=== PATIENT | female | born 1975 | race Caucasian/White ===

== ENCOUNTER 2021-12-28 21:06 | Inpatient (IN) ==
[2021-12-28 21:45] LABS: Basophils # (auto) 0.04 K/uL (0-0.2); Basophils % (auto) 0.5 %; Eosinophils % (auto) 2.6 %; Hematocrit (blood only) 41.2 % (37-47); Hemoglobin 13.9 g/dL (12.0-16.0); Immature Granulocytes # (auto) 0.01 K/uL (0.00-0.02); Immature Granulocytes % (auto) 0.1 %; Lymphocytes # (auto) 2.57 K/uL (1.2-3.4); Lymphocytes % (auto) 33.1 %; Mean Corpuscular Hemoglobin 30.3 pg (25-34); Mean Corpuscular Hgb Conc 33.7 g/dL (32-36); Mean Platelet Volume 9.8 fL (7.4-10.4); Monocytes # (auto) 0.56 K/uL (0.11-0.59); Monocytes % (auto) 7.2 %; Neutrophils # (auto) 4.38 K/uL (1.4-6.5); Neutrophils % (auto) 56.5 %; Platelet Count 264 K/uL (130-400); RDW Coefficient of Variation 12.7 % (11.5-14.5); RDW Standard Deviation 41.6 fL (36.4-46.3); Red Blood Count 4.58 M/uL (4.2-5.4); White Blood Count 7.76 K/uL (4.8-10.8)
--- NOTE | 2021-12-28 21:48 | Emergency Department Note ---
History of Present Illness General Chief complaint: Mental Health Evaluation Stated complaint: MENTAL HEALTH Time Seen by Provider: 12/28/21 21:33 History of Present Illness Maximum Pain Intensity: 0 46-year-old female presents to the ED with a chief complaint of suicidal ideation. The patient states that she has had some recent traumas in her life. She states that her dad suddenly and unexpectedly in the recent past. She also states that her girlfriend has broken up with her. She states that she is currently in a basement apartment and does not want to be there. She has not done anything to hurt or harm herself as of yet. She sent some text messages to a friend who subsequently suggested she come in for evaluation. The patient is voluntary. She has been admitted to a mental health facility in the past. Home Medications Medication Instructions Recorded Confirmed Type Aygestin 5 mg PO DAILY 12/28/21 12/28/21 History Concerta 18 mg PO DAILY 12/28/21 12/28/21 History bupropion HCl 300 mg PO 12/28/21 History clonazepam 1.5 mg PO DAILY 12/28/21 12/28/21 History clonazepam 2 mg PO DAILY 12/28/21 12/28/21 History mirtazapine 15 mg PO DAILY 12/28/21 12/28/21 History pantoprazole 40 mg PO DAILY 12/28/21 12/28/21 History prazosin 2 mg PO DAILY 12/28/21 12/28/21 History sertraline 200 mg PO DAILY 12/28/21 12/28/21 History Past Med/Surg History Social History Smoking Status: Never smoker Review of Systems A total of 10 systems reviewed and were otherwise negative Physical Exam Vital Signs Vital Signs - 24 hr 12/28/21 21:06 12/28/21 22:13 Temperature 37.2 C 36.7 C Temperature Source Temporal Artery Scan Oral Pulse Rate 102 H Pulse Rate [Finger] 106 H Respiratory Rate 16 18 Blood Pressure 118/84 Blood Pressure [Left Arm] 147/86 H Blood Pressure Mean 95 Blood Pressure Mean [Left Arm] 106 Blood Pressure Position Sitting Pulse Oximetry 96 100 Oxygen Delivery Method Room Air Room Air Sepsis Recent Fever Within 48 Hours No Sepsis New/Unexplained Change in Mental Status No Sepsis Action Taken by Nursing No Action Required CONSTITUTIONAL/VITAL SIGNS: Reviewed / noted above. GENERAL: Non-toxic in appearance. INTEGUMENTARY: Warm, dry, and Petal. HEAD: Normocephalic. EYES: without scleral icterus or trauma. ENT/OROPHARYNX: clear and moist. LYMPHADENOPATHY/NECK: Is supple without lymphadenopathy or meningismus. RESPIRATORY: Clear to auscultation bilaterally. No increased work of breathing. CARDIOVASCULAR: Regular rate and rhythm. GI/ABDOMEN: Soft and nontender. No organomegaly or pulsatile mass. EXTREMITIES: Warm and well perfused. BACK: No CVA tenderness. NEUROLOGICAL: Intact without focal deficits. PSYCHIATRIC: Depressed affect. MUSCULOSKELETAL: Normally developed with good muscle tone. TRIAGE NURSING DOCUMENTATION REVIEWED. Course Administered Medications Discontinued Medications Hydroxyzine HCl (Hydroxyzine Hcl 25 Mg Tab) 25 mg PO NOW STA Stop: 12/28/21 23:06 Last Admin: 12/28/21 23:18 Dose: 25 mg Documented by: [id number] Medical Decision Making Differential Diagnosis Differential includes toxic ingestions, self-mutilation, suicidal ideation, suicide attempt, depression. Medical Records Attestation: I reviewed the patient's medical records. Home Medications Current Medication List: was personally reviewed by me Laboratory Data Attestation: I reviewed the patient's lab results. Result diagrams: 12/28/21 21:29 12/28/21 21:29 Lab Results 12/28/21 12/28/21 12/28/21 Range/Units 21:23 21:23 21:23 WBC (4.8-10.8) K/uL RBC (4.2-5.4) M/uL Hgb (12.0-16.0) g/dL Hct (37-47) % MCV (80-100) fL MCH (25-34) pg MCHC (32-36) g/dL RDW Std Deviation (36.4-46.3) fL RDW Coeff of Tejinder (11.5-14.5) % Plt Count (130-400) K/uL MPV (7.4-10.4) fL Immature Gran % (Auto) % Neut % (Auto) % Lymph % (Auto) % [place] % (Auto) % Eos % (Auto) % Baso % (Auto) % Neut # (Auto) (1.4-6.5) K/uL Lymph # (Auto) (1.2-3.4) K/uL [place] # (Auto) (0.11-0.59) K/uL Eos # (Auto) (0-0.5) K/uL Baso # (Auto) (0-0.2) K/uL Immature Gran # (Auto) (0.00-0.02) K/uL Sodium (136-145) mmol/L Potassium (3.5-5.1) mmol/L Chloride (98-107) mmol/L Carbon Dioxide (21-32) mmol/L Anion Gap (3-11) BUN (6-23) mg/dl Creatinine (0.6-1.2) mg/dl Est Cr Clr Drug Dosing ml/min Est GFR ( Amer) ml/min Est GFR (Non-Af Amer) ml/min BUN/Creatinine Ratio (10-20) Glucose (70-99(Fasting)) mg/dl Calcium (8.5-10.1) mg/dl Total Bilirubin (0.2-1.0) mg/dl AST (13-39) U/L ALT (7-52) U/L Alkaline Phosphatase (34-104) U/L Total Protein (6.0-8.3) gm/dl Albumin (3.4-5.0) gm/dl Globulin (2.5-4.0) gm/dl Albumin/Globulin Ratio (0.9-2) TSH (0.300-4.500) uIu/ml Urine Color Yellow Urine Appearance Clear (Clear) Urine pH 6.0 (4.5-7.5) Ur Specific Halfway 1.022 (1.000-1.030) Urine Protein Negative (Negative) Urine Glucose (UA) Negative (Negative) Urine Ketones Negative (Negative) Urine Blood Negative (Negative) Urine Nitrite Negative (Negative) Urine Bilirubin Negative (Negative) Urine Urobilinogen Negative (Negative) Ur Leukocyte Esterase Negative (Negative) Urine Test Negative (Negative) Salicylates (3.0-30) mg/dl Urine Opiates Screen Neg (Neg) Ur Methadone, Qual Neg (Neg) Acetaminophen (10-30) ug/ml Urine Barbiturates Neg (Neg) Ur Phencyclidine (PCP) Neg (Neg) U Amphetamin/Meth Scrn Neg (Neg) MDMA (Ecstasy) Screen Pos H (Neg) U Benzodiazepines Scrn Pos H (Neg) Ur Cocaine Metabolite Neg (Neg) U Marijuana (THC) Screen Pos H (Neg) Ethyl Alcohol mg/dL (<10.0) mg/dl SARS-CoV-2, RNA, NAAT (NEGATIVE) 12/28/21 12/28/21 12/28/21 Range/Units 21:29 21:29 21:29 WBC 7.76 (4.8-10.8) K/uL RBC 4.58 (4.2-5.4) M/uL Hgb 13.9 (12.0-16.0) g/dL Hct 41.2 (37-47) % MCV 90.0 (80-100) fL MCH 30.3 (25-34) pg MCHC 33.7 (32-36) g/dL RDW Std Deviation 41.6 (36.4-46.3) fL RDW Coeff of Tejinder 12.7 (11.5-14.5) % Plt Count 264 (130-400) K/uL MPV 9.8 (7.4-10.4) fL Immature Gran % (Auto) 0.1 % Neut % (Auto) 56.5 % Lymph % (Auto) 33.1 % [place] % (Auto) 7.2 % Eos % (Auto) 2.6 % Baso % (Auto) 0.5 % Neut # (Auto) 4.38 (1.4-6.5) K/uL Lymph # (Auto) 2.57 (1.2-3.4) K/uL [place] # (Auto) 0.56 (0.11-0.59) K/uL Eos # (Auto) 0.20 (0-0.5) K/uL Baso # (Auto) 0.04 (0-0.2) K/uL Immature Gran # (Auto) 0.01 (0.00-0.02) K/uL Sodium 136 (136-145) mmol/L Potassium 3.3 L (3.5-5.1) mmol/L Chloride 104 (98-107) mmol/L Carbon Dioxide 26 (21-32) mmol/L Anion Gap 6 (3-11) BUN 15 (6-23) mg/dl Creatinine 1.02 (0.6-1.2) mg/dl Est Cr Clr Drug Dosing 55.7 ml/min Est GFR ( Amer) 77.5 ml/min Est GFR (Non-Af Amer) 66.8 ml/min BUN/Creatinine Ratio 14.7 (10-20) Glucose 107 H (70-99(Fasting)) mg/dl Calcium 8.8 (8.5-10.1) mg/dl Total Bilirubin 0.3 (0.2-1.0) mg/dl AST 11 L (13-39) U/L ALT 8 (7-52) U/L Alkaline Phosphatase 39 (34-104) U/L Total Protein 6.5 (6.0-8.3) gm/dl Albumin 4.1 (3.4-5.0) gm/dl Globulin 2.4 L (2.5-4.0) gm/dl Albumin/Globulin Ratio 1.7 (0.9-2) TSH 2.710 (0.300-4.500) uIu/ml Urine Color Urine Appearance (Clear) Urine pH (4.5-7.5) Ur Specific Halfway (1.000-1.030) Urine Protein (Negative) Urine Glucose (UA) (Negative) Urine Ketones (Negative) Urine Blood (Negative) Urine Nitrite (Negative) Urine Bilirubin (Negative) Urine Urobilinogen (Negative) Ur Leukocyte Esterase (Negative) Urine Test (Negative) Salicylates (3.0-30) mg/dl Urine Opiates Screen (Neg) Ur Methadone, Qual (Neg) Acetaminophen (10-30) ug/ml Urine Barbiturates (Neg) Ur Phencyclidine (PCP) (Neg) U Amphetamin/Meth Scrn (Neg) MDMA (Ecstasy) Screen (Neg) U Benzodiazepines Scrn (Neg) Ur Cocaine Metabolite (Neg) U Marijuana (THC) Screen (Neg) Ethyl Alcohol mg/dL (<10.0) mg/dl SARS-CoV-2, RNA, NAAT (NEGATIVE) 12/28/21 12/28/21 12/28/21 Range/Units 21:29 21:29 22:08 WBC (4.8-10.8) K/uL RBC (4.2-5.4) M/uL Hgb (12.0-16.0) g/dL Hct (37-47) % MCV (80-100) fL MCH (25-34) pg MCHC (32-36) g/dL RDW Std Deviation (36.4-46.3) fL RDW Coeff of Tejinder (11.5-14.5) % Plt Count (130-400) K/uL MPV (7.4-10.4) fL Immature Gran % (Auto) % Neut % (Auto) % Lymph % (Auto) % [place] % (Auto) % Eos % (Auto) % Baso % (Auto) % Neut # (Auto) (1.4-6.5) K/uL Lymph # (Auto) (1.2-3.4) K/uL [place] # (Auto) (0.11-0.59) K/uL Eos # (Auto) (0-0.5) K/uL Baso # (Auto) (0-0.2) K/uL Immature Gran # (Auto) (0.00-0.02) K/uL Sodium (136-145) mmol/L Potassium (3.5-5.1) mmol/L Chloride (98-107) mmol/L Carbon Dioxide (21-32) mmol/L Anion Gap (3-11) BUN (6-23) mg/dl Creatinine (0.6-1.2) mg/dl Est Cr Clr Drug Dosing ml/min Est GFR ( Amer) ml/min Est GFR (Non-Af Amer) ml/min BUN/Creatinine Ratio (10-20) Glucose (70-99(Fasting)) mg/dl Calcium (8.5-10.1) mg/dl Total Bilirubin (0.2-1.0) mg/dl AST (13-39) U/L ALT (7-52) U/L Alkaline Phosphatase (34-104) U/L Total Protein (6.0-8.3) gm/dl Albumin (3.4-5.0) gm/dl Globulin (2.5-4.0) gm/dl Albumin/Globulin Ratio (0.9-2) TSH (0.300-4.500) uIu/ml Urine Color Urine Appearance (Clear) Urine pH (4.5-7.5) Ur Specific Halfway (1.000-1.030) Urine Protein (Negative) Urine Glucose (UA) (Negative) Urine Ketones (Negative) Urine Blood (Negative) Urine Nitrite (Negative) Urine Bilirubin (Negative) Urine Urobilinogen (Negative) Ur Leukocyte Esterase (Negative) Urine Test (Negative) Salicylates < 3.0 L (3.0-30) mg/dl Urine Opiates Screen (Neg) Ur Methadone, Qual (Neg) Acetaminophen < 3 L (10-30) ug/ml Urine Barbiturates (Neg) Ur Phencyclidine (PCP) (Neg) U Amphetamin/Meth Scrn (Neg) MDMA (Ecstasy) Screen (Neg) U Benzodiazepines Scrn (Neg) Ur Cocaine Metabolite (Neg) U Marijuana (THC) Screen (Neg) Ethyl Alcohol mg/dL < 10.0 (<10.0) mg/dl SARS-CoV-2, RNA, NAAT NEGATIVE (NEGATIVE) MDM Narrative Patient presents to the ED with a chief complaint of depression and suicidal ideation as detailed above. Vital signs are stable. The patient's blood work was unremarkable. Covid test is negative. Tox screen was positive for MDMA, benzos and marijuana. Aspirin and Tylenol negative. Alcohol is negative. The patient is a voluntary admission at this time. She was given some hydroxyzine for anxiety. The patient was accepted at [facility] Impression & Plan Depression with suicidal ideation Discharge Plan Visit Data Chief Complaint: Mental Health Evaluation Stated Complaint: MENTAL HEALTH ED Provider: Jayro Hawkins Discharge Problem: Depression with suicidal ideation Patient Disposition: Transfer Behavioral Health Fac Forms Stand Alone Forms: [facility], Suicide Prevention Resources, Virtual Emergency Department, Important Visit Information Prescriptions Prescriptions: No Action Concerta 18 mg tablet 18 mg PO DAILY RF: 0 bupropion HCl 300 mg 300 mg PO RF: 0 clonazepam 2 mg tablet 2 mg PO DAILY RF: 0 clonazepam 1.5 mg 1.5 mg PO DAILY RF: 0 mirtazapine 15 mg tablet 15 mg PO DAILY RF: 0 pantoprazole 40 mg tablet 40 mg PO DAILY RF: 0 prazosin 2 mg tablet 2 mg PO DAILY RF: 0 sertraline 100 mg tablet 200 mg PO DAILY RF: 0 Aygestin 5 mg tablet 5 mg PO DAILY RF: 0 Referrals Referrals: PCP,NO [Primary Care Provider] -
[2021-12-28 22:02] LABS: Albumin Globulin Ratio 1.7 (0.9-2); Albumin Level 4.1 gm/dl (3.4-5.0); Bilirubin,Total 0.3 mg/dl (0.2-1.0); Calcium 8.8 mg/dl (8.5-10.1); Creatinine Clr Calc Pharmacy 55.7 ml/min; Est GFR (African American) 77.5 ml/min; Est GFR (Non-African American) 66.8 ml/min; Globulin 2.4 gm/dl (2.5-4.0); Potassium 3.3 mmol/L (3.5-5.1); Total Protein 6.5 gm/dl (6.0-8.3)
[2021-12-28 22:12] LABS: Acetaminophen < 3 ug/ml (10-30); Salicylate < 3.0 mg/dl (3.0-30)
[2021-12-28 22:13] LABS: Appearance Urine Clear (Clear); Bilirubin Urine Negative (Negative); Blood Urine Negative (Negative); Color Urine Yellow; Glucose Urine UA Negative (Negative); Ketones Urine Negative (Negative); Leukocyte Esterase Urine Negative (Negative); Nitrite Urine Negative (Negative); Protein Urine Negative (Negative); Specific Gravity Urine 1.022 (1.000-1.030); Urobilinogen Urine Negative (Negative)
[2021-12-28 22:14] VITALS: O2SAT 100
[2021-12-28 22:31] LABS: BUN Creatinine Ratio 14.7 (10-20)
[2021-12-28 22:46] LABS: Amphetamines+Metham, Urine Neg (Neg); Barbiturates, Urine Neg (Neg); Benzodiazepine, Urine Pos (Neg); Cocaine, Urine Neg (Neg); MDMA (Ecstacy), Urine Pos (Neg); Methadone, Urine Neg (Neg); Opiate, Urine Neg (Neg); Phencyclidine, Urine Neg (Neg)
[2021-12-28] MEDS ORDERED: hydrOXYzine HCl 25 MG TAB PO STA (23:05)
[2021-12-28 23:50] LABS: Pregnancy Test, Urine Negative (Negative)
[2021-12-29] MEDS ORDERED: MAGNESIUM HYDROXIDE SUSP 30 ML UDC PO PRN (00:50)
[2021-12-29] MEDS ORDERED: SODIUM CHLORIDE 0.65% NA SOLN 45 ML (OCEAN) PRN (00:50)
[2021-12-29] MEDS ORDERED: BISMUTH SUBSALICYLATE LIQD 236 ML PO PRN (00:50)
[2021-12-29] MEDS ORDERED: hydrOXYzine HCl 25 MG TAB PO PRN ×2 (00:50)
[2021-12-29] MEDS ORDERED: ACETAMINOPHEN 325 MG TAB PO PRN (00:50)
[2021-12-29] MEDS ORDERED: ALUMINUM/MAGNESIUM SUSP 30 ML UDC PO PRN (00:50)
[2021-12-29] MEDS: clonazePAM 1 MG TAB PO SCH (10:38)
[2021-12-29] MEDS ORDERED: chlorproMAZINE HCL 25 MG TAB PO PRN (11:38)
[2021-12-29] MEDS ORDERED: LORazepam 2 MG/ML VIAL (IM USE) IM STA (11:50)
[2021-12-29] MEDS ORDERED: BENZTROPINE MESYLATE 1 MG/ML 2 ML AMP IM STA (11:50)
[2021-12-29] MEDS ORDERED: HALOPERIDOL LACTATE 5 MG/ML 1 ML VIAL IM STA (11:50)
[2021-12-29] MEDS ORDERED: HALOPERIDOL LACTATE 5 MG/ML 1 ML VIAL ONE (11:53)
[2021-12-29] MEDS ORDERED: LORazepam 2 MG/ML VIAL (IM USE) ONE (11:54)
[2021-12-29] MEDS ORDERED: BENZTROPINE MESYLATE 1 MG/ML 2 ML AMP ONE (11:55)
[2021-12-29] MEDS: SERTRALINE HCL 100 MG TABLET PO SCH (12:23)
[2021-12-29] MEDS: NORETHINDRONE 5 MG TAB PO SCH (12:23)
[2021-12-29] MEDS ORDERED: METHYLPHENIDATE HCL 10 MG TABLET PO ONE (12:30)
[2021-12-29] MEDS: buPROPion XL 300 MG TABCR PO SCH (12:35)
--- NOTE | 2021-12-29 12:44 | History & Physical ---
Date of Service December 29, 2021 Impression / Recommendations Impression 46 yo female with threats to harm self following a break up with her girlfriend and multiple losses (father in August, a friend's brother's suicide, etc). She is adamant that her medications are fine and that therapies will not deter her from following through. Her dramatic statements in the context of perceived rejection are suggestive of borderline personality disorder but she also has a reported history of complex trauma which we aren't able to delineate during this period of acute agitation. (1) Depression with suicidal ideation: (2) Post traumatic stress disorder (PTSD): The patient was admitted to the [facility] ([facility] unit) on q15 min checks (behavioral with suicide precautions) for safety. The patient will participate in group, recreational, and milieu therapies and will be offered additional individual and family sessions as clinically appropriate. Reviewed behavioral expectations on unit with patient and she voiced desire to remain a voluntary patient. Reviewed indication for conversion to 302 commitment if she remains resistant to treatment and this disruptive to unit milieu and/or threatening toward staff. Home medications are confirmed and ordered though Concerta not available to converted to 5 mg methylphenidate TID. She is requesting prn other than vistaril, reviewed VS and offer low dose Thorazine. I do not want to give additional Ativan on a regular basis on top of her 3 mg of Klonopin a day so if needs additional IM would consider Haldol alone. Currently after several hours of staff interventions and multiple interactions with me she is resting calmly. Inventory Assets Strengths: established providers, therapy minded Needs: coping skills, exploration of housing options Risk Factors Assessment Male: No : Yes Do You Have Access To A Gun?: No Mental Health Diagnoses: Yes Substance Use Disorders: No Previous Attempt: Yes Previous Psychiatric Hospitalization: Yes Protective Factors Assessment : No Responsible for Young Children: No Employed: No Stable Relationships: No Psychiatric History Identifying Data RAAD VOGEL is a 46-year-old F who was residing in the [facility] and is currently staying with a friend's relative in [place], has a history of P TSD, and was admitted on 12/29/21 00:50 on a 201 voluntary commitment for suicidal statements. Chief Complaint "I am going to kill myself and that's just a fact no matter how long I'm here". History of Present Illness The patient has been very uncooperative this am. Was sleeping and am meds were being held until seen by MD to confirm given rx of benzo, 3 antidepressants, etc. She states this triggered a panic attack but voiced other significant complaints, mainly that "the one person who was supposed to love me didn't". She is referring to her ex-girlfriend who is currently "on vacation in [place]" following their abrupt break up. The patient states that things "haven't been great but we were going to counseling". For example, reports girlfriend yelled at her at the same time her father unexpectedly in August. The patient notes other losses in the past 10 weeks and reports "I've decided I'm just done" (referring to life in general). She is angry that her only provides $500 spousal support and she has a limited relationship with her children who continue to reside with him in [place]. She was loud, restless, tearful, and accusatory throughout the interview and demanded that her ex-girlfriend be called by staff and confronted about "creating this", referring to her current psychiatric state. The patient continued to escalate despite verbal de- escalation and receiving am meds. She spent significant time in/out of her room yelling and wanting to be "put out", referring to chemical restraint. Reviewed that not a goal of treatment and possibility of switching to an involuntary commitment at which time she became even more angry. Prn Thorazine was ordered but before it could be administered patient continued to escalate and was voluntarily accepted Haldol 10 mg, Ativan 2 mg, and Cogentin 1 mg and expressed thanks to staff. Past Psychiatric History Previous Psych History: PTSD, ADHD, recently restarting Concerta. No rx was in PDMP so I contacted [facility] in [place] ([facility]) and confirmed dose/order. It had not been picked up as they did not have adequate supply to dispense. Current Psychiatric Diagnosis: MDD Outpatient Services: Dr. Chavez in [place], [place]. Patient has continued with him while living in [place] via telehealth trauma therapist, "I've done it all, CBT, DBT, you name it." Previous Psych Admissions: one, unclear date/location Do You Have Access To A Gun?: No History of Previous Suicide Attempt: Yes (OD in 2018) Past Medication Trials: not able to obtain at this time, records requested Home Medications Medication Instructions Recorded Confirmed Type Aygestin 5 mg PO DAILY 12/28/21 12/28/21 History Concerta 18 mg PO DAILY 12/28/21 12/28/21 History bupropion HCl 300 mg PO 12/28/21 History clonazepam 1.5 mg PO DAILY 12/28/21 12/28/21 History clonazepam 2 mg PO DAILY 12/28/21 12/28/21 History mirtazapine 15 mg PO DAILY 12/28/21 12/28/21 History pantoprazole 40 mg PO DAILY 12/28/21 12/28/21 History prazosin 2 mg PO DAILY 12/28/21 12/28/21 History sertraline 200 mg PO DAILY 12/28/21 12/28/21 History Family History Family History of: Doesn't Know Alcohol History Hx of Alcohol Use Over the Past 12 Months: No AUDIT Total Score: 0 Smoking Use Have You Smoked or Used Tobacco Products in the Last 30 Days: No Smoking Status: Never smoker Substance History Hx of Prescription Med Misuse Over the Past 12 Months: No Hx of Over the Counter Med Misuse Over the Past 12 Months: No Hx of Inhalent Misuse Over the Past 12 Months: No Hx of Organic Substance Use Over the Past 12 Months: No Hx of Illegal Substances/Street Drug Use Over Past 12 Months: No Problems as a Result of Past Substance Use: None Identified Personal History Living Arrangements: Apartment (basement, in a friend's relative's home) Employment Status: Disabled Marital Status: Number Of Children: 2 (ages 13 and 17) Beliefs That Will Affect Care: None Current Legal Problems: No Hx Traumatic Life Events: Yes (won't elaborate as "being tortured in this room.") Patient History Medical History (Updated 12/29/21 @ 12:45 by Angela Smith MD) Multiple sclerosis Social History Smoking Status: Never smoker Preferred Language: Azeri Communication Ability: Effective Real Estate Financial Analyst Required: No Beliefs That Will Affect Care: None Feels Safe at Home: No Assistive Devices: Contacts and Glasses Assistive Devices Comment: glasses currently with pt; pt does not currently have her contacts Immunizations: patient reported MS, wasn't on record from ED, currently limited assessment; PDMP shows hx of testosterone rx, currently on hormone replacement Review of Systems Review of Systems: All systems reviewed & are unremarkable except as noted in HPI & below Physical Exam Psychiatric: Orientation: alert and oriented x 3 Apperance: appropriately dressed and appropriately groomed Eye Contact: + fair eye contact Motor Behavior: + psychomotor agitation Speech: + pressured speech and + loud speech Affect: + angry affect Mood: + depressed mood, + anxious mood and + irritable mood Thought Process: + circumstantial thought process and + perseveration Thought Content: reality based without delusions Suicidal Thoughts: + reports suicidal thoughts, + reports suicidal plan (won't elaborate) and + reports suicidal intent ("when I get out of this place") Homicidal Thoughts: denies homicidal thoughts Hallucinations: no auditory hallucinations and no visual hallucinations Cognition: language grossly intact; + attention not intact Estimated Intelligence: consistent with education level Insight: + poor insight Judgement: + poor judgement Vital Signs (Past 24 Hours): Last Vital Signs Temp 36.9 C 12/29/21 06:24 Pulse 73 12/29/21 06:24 Resp 16 12/29/21 06:24 BP 112/77 12/29/21 06:24 Pulse Ox 100 12/28/21 22:13 Exam Statement: A physical exam was performed in the ED by Dr. Young for the purposes of medical clearance. I accept that physical as correct and adequate for the purposes of the inpatient physical exam. Results & Data ([facility]) Laboratory Results Laboratory Results - last 24 hr 12/28/21 12/28/21 12/28/21 21:23 21:23 21:23 WBC RBC Hgb Hct MCV MCH MCHC RDW Std Deviation RDW Coeff of Tejinder Plt Count MPV Immature Gran % (Auto) Neut % (Auto) Lymph % (Auto) [place] % (Auto) Eos % (Auto) Baso % (Auto) Neut # (Auto) Lymph # (Auto) [place] # (Auto) Eos # (Auto) Baso # (Auto) Immature Gran # (Auto) Sodium Potassium Chloride Carbon Dioxide Anion Gap BUN Creatinine Est Cr Clr Drug Dosing Est GFR ( Amer) Est GFR (Non-Af Amer) BUN/Creatinine Ratio Glucose Calcium Total Bilirubin AST ALT Alkaline Phosphatase Total Protein Albumin Globulin Albumin/Globulin Ratio TSH Urine Color Yellow Urine Appearance Clear Urine pH 6.0 Ur Specific [place] 1.022 Urine Protein Negative Urine Glucose (UA) Negative Urine Ketones Negative Urine Blood Negative Urine Nitrite Negative Urine Bilirubin Negative Urine Urobilinogen Negative Ur Leukocyte Esterase Negative Urine Test Salicylates Urine Opiates Screen Neg Ur Methadone, Qual Neg Acetaminophen Urine Barbiturates Neg Ur Phencyclidine (PCP) Neg U Amphetamin/Meth Scrn Neg Urine MDEA Pending MDMA (Ecstasy) Screen Pos H MDMA Pending Urine MDMA Pending U OH-Alprazolam Confrm Pending U Benzodiazepines Scrn Pos H 7-Amino Clonazepam Pending Ur Nordiazepam Confirm Pending U OH-ethylflurazepam Pending U Lorazepam Cnf GC/MS Pending U Oxazepam Confm GC/MS Pending Ur Temazepam Confirm Pending U OH-Triazolam Confirm Pending U OH-Midazolam Confirm Pending Ur Cocaine Metabolite Neg U Marijuana (THC) Screen Pos H U Marijuana THC Carboxy Pending Drug Screen Comment Pending Ethyl Alcohol mg/dL SARS-CoV-2, RNA, NAAT 12/28/21 12/28/21 12/28/21 21:23 21:29 21:29 WBC 7.76 RBC 4.58 Hgb 13.9 Hct 41.2 MCV 90.0 MCH 30.3 MCHC 33.7 RDW Std Deviation 41.6 RDW Coeff of Tejinder 12.7 Plt Count 264 MPV 9.8 Immature Gran % (Auto) 0.1 Neut % (Auto) 56.5 Lymph % (Auto) 33.1 [place] % (Auto) 7.2 Eos % (Auto) 2.6 Baso % (Auto) 0.5 Neut # (Auto) 4.38 Lymph # (Auto) 2.57 [place] # (Auto) 0.56 Eos # (Auto) 0.20 Baso # (Auto) 0.04 Immature Gran # (Auto) 0.01 Sodium 136 Potassium 3.3 L Chloride 104 Carbon Dioxide 26 Anion Gap 6 BUN 15 Creatinine 1.02 Est Cr Clr Drug Dosing 55.7 Est GFR ( Amer) 77.5 Est GFR (Non-Af Amer) 66.8 BUN/Creatinine Ratio 14.7 Glucose 107 H Calcium 8.8 Total Bilirubin 0.3 AST 11 L ALT 8 Alkaline Phosphatase 39 Total Protein 6.5 Albumin 4.1 Globulin 2.4 L Albumin/Globulin Ratio 1.7 TSH Urine Color Urine Appearance Urine pH Ur Specific [place] Urine Protein Urine Glucose (UA) Urine Ketones Urine Blood Urine Nitrite Urine Bilirubin Urine Urobilinogen Ur Leukocyte Esterase Urine Test Negative Salicylates Urine Opiates Screen Ur Methadone, Qual Acetaminophen Urine Barbiturates Ur Phencyclidine (PCP) U Amphetamin/Meth Scrn Urine MDEA MDMA (Ecstasy) Screen MDMA Urine MDMA U OH-Alprazolam Confrm U Benzodiazepines Scrn 7-Amino Clonazepam Ur Nordiazepam Confirm U OH-ethylflurazepam U Lorazepam Cnf GC/MS U Oxazepam Confm GC/MS Ur Temazepam Confirm U OH-Triazolam Confirm U OH-Midazolam Confirm Ur Cocaine Metabolite U Marijuana (THC) Screen U Marijuana THC Carboxy Drug Screen Comment Ethyl Alcohol mg/dL SARS-CoV-2, RNA, NAAT 12/28/21 12/28/21 12/28/21 21:29 21:29 21:29 WBC RBC Hgb Hct MCV MCH MCHC RDW Std Deviation RDW Coeff of Tejinder Plt Count MPV Immature Gran % (Auto) Neut % (Auto) Lymph % (Auto) [place] % (Auto) Eos % (Auto) Baso % (Auto) Neut # (Auto) Lymph # (Auto) [place] # (Auto) Eos # (Auto) Baso # (Auto) Immature Gran # (Auto) Sodium Potassium Chloride Carbon Dioxide Anion Gap BUN Creatinine Est Cr Clr Drug Dosing Est GFR ( Amer) Est GFR (Non-Af Amer) BUN/Creatinine Ratio Glucose Calcium Total Bilirubin AST ALT Alkaline Phosphatase Total Protein Albumin Globulin Albumin/Globulin Ratio TSH 2.710 Urine Color Urine Appearance Urine pH Ur Specific [place] Urine Protein Urine Glucose (UA) Urine Ketones Urine Blood Urine Nitrite Urine Bilirubin Urine Urobilinogen Ur Leukocyte Esterase Urine Test Salicylates < 3.0 L Urine Opiates Screen Ur Methadone, Qual Acetaminophen < 3 L Urine Barbiturates Ur Phencyclidine (PCP) U Amphetamin/Meth Scrn Urine MDEA MDMA (Ecstasy) Screen MDMA Urine MDMA U OH-Alprazolam Confrm U Benzodiazepines Scrn 7-Amino Clonazepam Ur Nordiazepam Confirm U OH-ethylflurazepam U Lorazepam Cnf GC/MS U Oxazepam Confm GC/MS Ur Temazepam Confirm U OH-Triazolam Confirm U OH-Midazolam Confirm Ur Cocaine Metabolite U Marijuana (THC) Screen U Marijuana THC Carboxy Drug Screen Comment Ethyl Alcohol mg/dL < 10.0 SARS-CoV-2, RNA, NAAT 12/28/21 22:08 WBC RBC Hgb Hct MCV MCH MCHC RDW Std Deviation RDW Coeff of Tejinder Plt Count MPV Immature Gran % (Auto) Neut % (Auto) Lymph % (Auto) [place] % (Auto) Eos % (Auto) Baso % (Auto) Neut # (Auto) Lymph # (Auto) [place] # (Auto) Eos # (Auto) Baso # (Auto) Immature Gran # (Auto) Sodium Potassium Chloride Carbon Dioxide Anion Gap BUN Creatinine Est Cr Clr Drug Dosing Est GFR ( Amer) Est GFR (Non-Af Amer) BUN/Creatinine Ratio Glucose Calcium Total Bilirubin AST ALT Alkaline Phosphatase Total Protein Albumin Globulin Albumin/Globulin Ratio TSH Urine Color Urine Appearance Urine pH Ur Specific [place] Urine Protein Urine Glucose (UA) Urine Ketones Urine Blood Urine Nitrite Urine Bilirubin Urine Urobilinogen Ur Leukocyte Esterase Urine Test Salicylates Urine Opiates Screen Ur Methadone, Qual Acetaminophen Urine Barbiturates Ur Phencyclidine (PCP) U Amphetamin/Meth Scrn Urine MDEA MDMA (Ecstasy) Screen MDMA Urine MDMA U OH-Alprazolam Confrm U Benzodiazepines Scrn 7-Amino Clonazepam Ur Nordiazepam Confirm U OH-ethylflurazepam U Lorazepam Cnf GC/MS U Oxazepam Confm GC/MS Ur Temazepam Confirm U OH-Triazolam Confirm U OH-Midazolam Confirm Ur Cocaine Metabolite U Marijuana (THC) Screen U Marijuana THC Carboxy Drug Screen Comment Ethyl Alcohol mg/dL SARS-CoV-2, RNA, NAAT NEGATIVE Current Inpatient Medications Current Inpatient Medications: Current Inpatient Medications Acetaminophen (Acetaminophen 325 Mg Tab) 650 mg PO Q4H PRN PRN Reason: Headache or Minor Fever Stop: 01/28/22 00:49 Al Hydrox/Mg Hydrox/Simethicone (Aluminum/Magnesium Susp 30 Ml Udc) 30 ml PO Q4H PRN PRN Reason: GI Upset Stop: 01/28/22 00:49 Bismuth Subsalicylate (Bismuth Subsalicylate Liqd 236 Ml) 15 ml PO PRN PRN PRN Reason: Loose Stool Stop: 01/28/22 00:49 Bupropion HCl (Bupropion Xl 300 Mg Tabcr) 300 mg PO QAM CHAVA Stop: 01/28/22 11:59 Chlorpromazine HCl (Chlorpromazine Hcl 25 Mg Tab) 25 mg PO Q6H PRN PRN Reason: Anxiety/Agitation Stop: 01/28/22 11:37 Clonazepam (Clonazepam 1 Mg Tab) 1 mg PO QAM CHAVA Stop: 01/28/22 09:54 Last Admin: 12/29/21 10:38 Dose: 1 mg Documented by: Hydroxyzine HCl (Hydroxyzine Hcl 25 Mg Tab) 50 mg PO HSZ PRN PRN Reason: Insomnia Stop: 01/28/22 00:49 Last Admin: 12/29/21 01:33 Dose: 50 mg Documented by: Hydroxyzine HCl (Hydroxyzine Hcl 25 Mg Tab) 25 mg PO Q4H PRN PRN Reason: Anxiety Stop: 01/28/22 00:49 Last Admin: 12/29/21 09:15 Dose: 25 mg Documented by: Magnesium Hydroxide (Magnesium Hydroxide Susp 30 Ml Udc) 30 ml PO DAILY PRN PRN Reason: Constipation Stop: 01/28/22 00:49 Methylphenidate HCl (Methylphenidate Hcl 5 Mg Tablet) 5 mg PO TIDM CHAVA Stop: 01/12/22 17:44 Methylphenidate HCl (Methylphenidate Hcl 10 Mg Tablet) 5 mg PO ONE ONE Stop: 12/29/21 12:31 Mirtazapine (Mirtazapine Tab 15 Mg Tab) 15 mg PO HS CHAVA Stop: 01/28/22 21:59 Norethindrone (Norethindrone 5 Mg Tab) 5 mg PO DAILY CHAVA Stop: 01/28/22 11:29 Pantoprazole Sodium (Pantoprazole 40 Mg Tab) 40 mg PO HS CHAVA Stop: 01/28/22 21:59 Prazosin HCl (Prazosin Hcl 1 Mg Cap) 2 mg PO HS CHAVA Stop: 01/28/22 21:59 Sertraline HCl (Sertraline Hcl 100 Mg Tablet) 200 mg PO DAILY CHAVA Stop: 01/28/22 11:29 Sodium Chloride (Sodium Chloride 0.65% Na Soln 45 Ml ([place])) 1 - 2 sprays NA PRN PRN PRN Reason: Nasal Dryness/Congestion Stop: 01/28/22 00:49
[2021-12-29] MEDS: METHYLPHENIDATE HCL 5 MG TABLET PO SCH (19:22)
[2021-12-29] MEDS ORDERED: clonazePAM 1 MG TAB PO SCH (22:00)
[2021-12-29] MEDS ORDERED: PRAZOSIN HCL 1 MG CAP PO SCH (22:00)
[2021-12-29] MEDS ORDERED: MIRTAZAPINE TAB 15 MG TAB PO SCH (22:00)
[2021-12-29] MEDS ORDERED: PANTOprazole 40 MG TAB PO SCH (22:00)
[2021-12-30] MEDS: NORETHINDRONE 5 MG TAB PO SCH (07:59)
[2021-12-30] MEDS: buPROPion XL 300 MG TABCR PO SCH (07:59)
[2021-12-30] MEDS: SERTRALINE HCL 100 MG TABLET PO SCH (08:00)
[2021-12-30] MEDS: clonazePAM 1 MG TAB PO SCH (08:00)
[2021-12-30 08:11] VITALS: TEMP 98.6
[2021-12-30] MEDS: METHYLPHENIDATE HCL 5 MG TABLET PO SCH ×2 (08:29→12:30)
[2021-12-30] MEDS ORDERED: clonazePAM 1 MG TAB PO PRN (11:38)
--- NOTE | 2021-12-30 12:08 | Discharge Summary ---
Date of Service December 30, 2021 History of Present Illness The patient has been very uncooperative this am. Was sleeping and am meds were being held until seen by MD to confirm given rx of benzo, 3 antidepressants, etc. She states this triggered a panic attack but voiced other significant complaints, mainly that "the one person who was supposed to love me didn't". She is referring to her ex-girlfriend who is currently "on vacation in [place]" following their abrupt break up. The patient states that things "haven't been great but we were going to counseling". For example, reports girlfriend yelled at her at the same time her father unexpectedly in August. The patient notes other losses in the past 10 weeks and reports "I've decided I'm just done" (referring to life in general). She is angry that her only provides $500 spousal support and she has a limited relationship with her children who continue to reside with him in [place]. She was loud, restless, tearful, and accusatory throughout the interview and demanded that her ex-girlfriend be called by staff and confronted about "creating this", referring to her current psychiatric state. The patient continued to escalate despite verbal de- escalation and receiving am meds. She spent significant time in/out of her room yelling and wanting to be "put out", referring to chemical restraint. Reviewed that not a goal of treatment and possibility of switching to an involuntary commitment at which time she became even more angry. Prn Thorazine was ordered but before it could be administered patient continued to escalate and was voluntarily accepted Haldol 10 mg, Ativan 2 mg, and Cogentin 1 mg and expressed thanks to staff. Physical Exam Vital Signs (Past 24 Hours) Last Vital Signs Temp 37.0 C 12/30/21 08:10 Pulse 85 12/30/21 08:10 Resp 16 12/29/21 06:24 BP 126/88 12/30/21 08:10 Pulse Ox 100 12/28/21 22:13 See admission H&P and DOD summary. Principal Diagnosis Borderline personality disorder; Post traumatic stress disorder Psychiatric Data See daily stay summary. In short, safety was maintained. After admission Anjelica became behaviorally and emotionally dysregulated due to feeling overwhelmed by being in the hospital and high levels of anxiety and voluntarily asked for and received haldol and ativan IM. She then slept and then was cooperative with care. She reconstituted quickly and on the morning of 12/30/20 was polite with staff and remained cooperative with care. However, she described how the inpatient hospital environment caused increased distress due to her PTSD and inability to use her typical coping skills (being around supports, using game apps on her phone, being able to be on her cell phone). She adamantly and genuinely denied SI and stated multiple future-oriented plans (returning to her friend's family's home for the short-term and then looking for an apartment with a roommate in [place] near her children as well as her longer term plans to enroll in an academic program through a local college). She denied any urges for self-harm noting that staying in the hospital would likely contribute to these thoughts. She reflected that her SI prior to and on admission was due to grief and her recent break-up for which she felt the most significant modifiable fa ctor would be eventually moving closer to her kids and that being in the hospital would not help her be able to research apartments or focus on the steps she needs to take to have more control over her life again. There were no medication changes. A safety plan was completed prior to discharge. She declined having a family meeting with her individual therapist as she had a scheduled appointment for Saturday01/01/22 with her individual therapist and an appointment with her couples therapist on 01/01/22 as well. She continues to feel well supported by her outpatient psychiatrist. We discussed at length the benefits of ongoing hospitalization versus the risks she perceived of an extended hospitalization (her prior hospitalizations have been very brief 2-3 days which is what she views as most helpful for her). She demonstrated decision making capacity and did not meet 302 criteria given resolution of acute SI, future- orientation, motivation to continue with outpatient supports and improvement in emotional and behavioral regulation. Day of Discharge Assessment Today the patient voices readiness for discharge. They note improvement in mood. They deny thoughts of harm to self or others. Thoughts are organized and they are clinically improved from admission. There is no evidence of psychosis. They improved in the hospital with support. They agree to take medications as prescribed and keep follow-up appointments. At the time of the discharge they are deemed to be stable and appropriate for outpatient level of care. They are not deemed to be at imminent risk of harm to self or others. They are aware of emergency and crisis services. Knows to call 911 or go to nearest emergency care center if in a crisis which cannot be handled as an outpatient. Transition of Care Transition Of Care Record: was reviewed with the patient Advance Directives Advance Directives Information Provided: Yes Advance Directives: No Mental Health Advance Directive: No Advance Directives on File: No Living Will: No Power of Escrow Closer: No Advance Directives Reason:: Declines as Mental Health Visit. Risk Factors Assessment Acute risk is low given denial of SI, future-oriented, engagement in outpatient services and insight regarding factors contributing to hospitalization and her motivation to make changes in her life (moving to a new town, enrolling in a college program, finding a new relationship in the future). They are stable for discharge to outpatient level of care as risk factors that can be mitigated have been addressed including reviewing her safety plan and adding new strategies that can be used moving forward. Ongoing outpatient therapy with a dialectical component is the core treatment for and the most evidence-based treatment to modify acute and chronic risk of self-harm related to borderline personality disorder. Additionally ongoing inpatient hospitalization would be counter- therapeutic at this time as it tends to worsen BPD and she feels that it prevents her from utilizing her coping skills (distraction, social media, being on her cell phone, having friends around) and exacerbates her PTSD. While this patient has many risk factors placing them at high chronic risk for suicide including BPD, past trauma, of parents, psychiatric co-morbidities (anxiety, depression), past attempts, chronic health condition (MS) and they may always be at a chcf risk for harm to self, there is not currently a necessity for ongoing inpatient psychiatric treatment. At this time there are no clear factors for inpatient treatment to modify, this can reinforce maladaptive coping skills and lead to worsening of acute and chronic risk, this is often contraindicated due to the worsening of the patient's prognosis, there is no acute risk to modify. As of now there is no clear acute/imminent risk of harm to self however, based upon any emergence of new stressors such as changes in the status of her relationship with her ex-girlfriend, the chronic risk may then transform into a period of acuity. Provided education and recommendations of treatment options and behavioral strategies including DBT, mindfulness, continuing to engage with positive supports which can help to reduce their acute and chronic risk which they were receptive to trying as an outpatient with their current supports. Also discussed resources and ways to add additional protective factors and positive supports to their life to reduce elements of chronic risk. Male: No : Yes Do You Have Access To A Gun?: No Health Problems: Yes (MS) Mental Health Diagnoses: Yes Substance Use Disorders: No Previous Attempt: Yes Previous Psychiatric Hospitalization: Yes Hopelessness: No Smoker: No Protective Factors Assessment : No Responsible for Young Children: No Employed: No Stable Relationships: No Supportive Family: Yes Good Rapport with Provider: Yes Discharge Data Lab Results 12/28/21 12/28/21 12/28/21 21:23 21:23 21:23 WBC RBC Hgb Hct MCV MCH MCHC RDW Std Deviation RDW Coeff of Tejinder Plt Count MPV Immature Gran % (Auto) Neut % (Auto) Lymph % (Auto) [place]ays % (Auto) Eos % (Auto) Baso % (Auto) Neut # (Auto) Lymph # (Auto) [place] # (Auto) Eos # (Auto) Baso # (Auto) Immature Gran # (Auto) Sodium Potassium Chloride Carbon Dioxide Anion Gap BUN Creatinine Est Cr Clr Drug Dosing Est GFR ( Amer) Est GFR (Non-Af Amer) BUN/Creatinine Ratio Glucose Calcium Total Bilirubin AST ALT Alkaline Phosphatase Total Protein Albumin Globulin Albumin/Globulin Ratio TSH Urine Color Yellow Urine Appearance Clear Urine pH 6.0 Ur Specific [place] 1.022 Urine Protein Negative Urine Glucose (UA) Negative Urine Ketones Negative Urine Blood Negative Urine Nitrite Negative Urine Bilirubin Negative Urine Urobilinogen Negative Ur Leukocyte Esterase Negative Urine Test Negative Salicylates Urine Opiates Screen Neg Ur Methadone, Qual Neg Acetaminophen Urine Barbiturates Neg Ur Phencyclidine (PCP) Neg U Amphetamin/Meth Scrn Neg MDMA (Ecstasy) Screen Pos H U Benzodiazepines Scrn Pos H Ur Cocaine Metabolite Neg U Marijuana (THC) Screen Pos H Ethyl Alcohol mg/dL SARS-CoV-2, RNA, NAAT 12/28/21 12/28/21 12/28/21 21:29 21:29 21:29 WBC 7.76 RBC 4.58 Hgb 13.9 Hct 41.2 MCV 90.0 MCH 30.3 MCHC 33.7 RDW Std Deviation 41.6 RDW Coeff of Tejinder 12.7 Plt Count 264 MPV 9.8 Immature Gran % (Auto) 0.1 Neut % (Auto) 56.5 Lymph % (Auto) 33.1 [place]ays % (Auto) 7.2 Eos % (Auto) 2.6 Baso % (Auto) 0.5 Neut # (Auto) 4.38 Lymph # (Auto) 2.57 Hays # (Auto) 0.56 Eos # (Auto) 0.20 Baso # (Auto) 0.04 Immature Gran # (Auto) 0.01 Sodium 136 Potassium 3.3 L Chloride 104 Carbon Dioxide 26 Anion Gap 6 BUN 15 Creatinine 1.02 Est Cr Clr Drug Dosing 55.7 Est GFR ( Amer) 77.5 Est GFR (Non-Af Amer) 66.8 BUN/Creatinine Ratio 14.7 Glucose 107 H Calcium 8.8 Total Bilirubin 0.3 AST 11 L ALT 8 Alkaline Phosphatase 39 Total Protein 6.5 Albumin 4.1 Globulin 2.4 L Albumin/Globulin Ratio 1.7 TSH 2.710 Urine Color Urine Appearance Urine pH Ur Specific [place] Urine Protein Urine Glucose (UA) Urine Ketones Urine Blood Urine Nitrite Urine Bilirubin Urine Urobilinogen Ur Leukocyte Esterase Urine Test Salicylates Urine Opiates Screen Ur Methadone, Qual Acetaminophen Urine Barbiturates Ur Phencyclidine (PCP) U Amphetamin/Meth Scrn MDMA (Ecstasy) Screen U Benzodiazepines Scrn Ur Cocaine Metabolite U Marijuana (THC) Screen Ethyl Alcohol mg/dL SARS-CoV-2, RNA, NAAT 12/28/21 12/28/21 12/28/21 21:29 21:29 22:08 WBC RBC Hgb Hct MCV MCH MCHC RDW Std Deviation RDW Coeff of Tejinder Plt Count MPV Immature Gran % (Auto) Neut % (Auto) Lymph % (Auto) [place] % (Auto) Eos % (Auto) Baso % (Auto) Neut # (Auto) Lymph # (Auto) [place] # (Auto) Eos # (Auto) Baso # (Auto) Immature Gran # (Auto) Sodium Potassium Chloride Carbon Dioxide Anion Gap BUN Creatinine Est Cr Clr Drug Dosing Est GFR ( Amer) Est GFR (Non-Af Amer) BUN/Creatinine Ratio Glucose Calcium Total Bilirubin AST ALT Alkaline Phosphatase Total Protein Albumin Globulin Albumin/Globulin Ratio TSH Urine Color Urine Appearance Urine pH Ur Specific [place] Urine Protein Urine Glucose (UA) Urine Ketones Urine Blood Urine Nitrite Urine Bilirubin Urine Urobilinogen Ur Leukocyte Esterase Urine Test Salicylates < 3.0 L Urine Opiates Screen Ur Methadone, Qual Acetaminophen < 3 L Urine Barbiturates Ur Phencyclidine (PCP) U Amphetamin/Meth Scrn MDMA (Ecstasy) Screen U Benzodiazepines Scrn Ur Cocaine Metabolite U Marijuana (THC) Screen Ethyl Alcohol mg/dL < 10.0 SARS-CoV-2, RNA, NAAT NEGATIVE Hospital Course (1) Depression with suicidal ideation: (2) Post traumatic stress disorder (PTSD): 12/30/21: Anjelica improved significantly overnight and reported resolution of SI related to being able to reflect on next steps for her life (wanting to move to [facility] in the coming months, wanting to take time to grieve the of her father, desire to enroll in college courses in the coming months) and expressed her desire to discharge as she felt hospitalization would result in worsening of her mood and would not help her address any modifiable risk factors. Reflected with her that such a rapid change in symptoms and mood is her typical pattern and that her past hospitalizations have also been very brief. She did not meet 302 criteria. 12/29/21: The patient was admitted to the [facility] unit) on q15 min checks (behavioral with suicide precautions) for safety. The patient will participate in group, recreational, and milieu therapies and will be offered additional individual and family sessions as clinically appropriate. Reviewed behavioral expectations on unit with patient and she voiced desire to remain a voluntary patient. Reviewed indication for conversion to 302 commitment if she remains resistant to treatment and this disruptive to unit milieu and/or threatening toward staff. Home medications are confirmed and ordered though Concerta not available to converted to 5 mg methylphenidate TID. She is requesting prn other than vistaril, reviewed VS and offer low dose Thorazine. I do not want to give additional Ativan on a regular basis on top of her 3 mg of Klonopin a day so if needs additional IM would consider Haldol alone. Currently after several hours of staff interventions and multiple interactions with me she is resting calmly. Mental Health & Subst Abuse Tx Psychiatrist Name of Psychiatrist: [facility] Psychiatrist's Psychiatric Appointment Comment: [address] [place] [address] [address], [place] [address] Therapist Name of Therapist: Patsy Ahumada) at [facility] Therapist's Therapy Appointment Comment: [address], [place] [address] Artificial Insemination Technician Name of Artificial Insemination Technician: magali OLIVO Post Discharge Appointments Primary Care Physician Name Of Family Doctor: none Discharge Plan Discharge Items Patient Disposition: Home - Self-Care Reason For Visit: MDD Discharge Diagnosis: Borderline personality disorder, Post traumatic stress disorder Activity: Resume your previous activity Non-emergency contact: Primary Care Provider, Psychiatrist and Therapist Call non-emergency contact if: you have any medication questions and your symptoms worsen Follow-up/Referrals: PCP,NO [Primary Care Provider] - Diet: Regular Addtl Attending Provider Instructions: SPECIAL CARE INSTRUCTIONS: 1. Follow through with your scheduled aftercare appointments. If unable to keep an appointment, please call to reschedule. 2. Take your medication only as prescribed. Medication should not be changed or stopped without the approval of your doctor. In the event of worsening symptoms or concerns about side effects, contact your doctor immediately. 3. Utilize new healthy coping skills, anger management skills, and stress management skills learned during your hospitalization. Journal feelings and process them with a support person. Identify stressors or situations that may result in relapse, deterioration or inappropriate behaviors and develop a plan to deal with those issues. 4. If your coping skills are ineffective and you are in crisis, contact your outpatient providers for direction. If unable to reach your providers, please call the [facility] CRISIS LINE AT , go to the [facility] walk-in center at [address], [place], or go to the closest Emergency Room. 5. Avoid alcohol and un-prescribed drugs. 6. You have been provided with the Mental Health Advance Directives Pamphlet for your review. 7. Your condition is stable for discharge to outpatient level of care, but recovery is an ongoing process. Ifthoughts to harm yourself or others return, follow the safety plan developed during your stay. Planning for a safe return home includes securing weapons. Our treatment team recommends weaponsbe removed from the home until your outpatient provider reassesses your progress. In rare cases where the items themselvescannot be removed, guns and ammunitionshould be secured separatelyand keys stored by a reliable personoutside of the home. If you were admitted on an involuntary commitment, the police or other legal authorities may be involved in this process. AFTERCARE APPOINTMENTS: * Please call your insurance company prior to your scheduled appointment to confirm your aftercare providers are covered. Take your insurance information to your ap pointments. WHO TO CALL AND WHEN: Medical Emergencies: For questions or emergencies related to your hospital stay, please contact the Inpatient Behavioral Health Unit at [phone]. A foundry engineer is on-call 17/06 for the Behavioral Health Unit for emergencies At any time you feel your situation is an emergency, you may also call 911 immediately. Pending Studies at Discharge: No Stand-Alone Forms: My [facility] Medications and DC Order Prescriptions: Continued Concerta 18 mg tablet 18 mg PO DAILY RF: 0 bupropion HCl 300 mg 300 mg PO RF: 0 clonazepam 2 mg tablet 2 mg PO DAILY RF: 0 mirtazapine 15 mg tablet 15 mg PO DAILY RF: 0 pantoprazole 40 mg tablet 40 mg PO DAILY RF: 0 prazosin 2 mg tablet 2 mg PO DAILY RF: 0 sertraline 100 mg tablet 200 mg PO DAILY RF: 0 Aygestin 5 mg tablet 5 mg PO DAILY RF: 0 Discontinued clonazepam 1.5 mg 1.5 mg PO DAILY RF: 0 Discharge Orders: Discharge Order (Routine); Ordered 12/30/21 Ordered By: Ifrah Anderson/Other Patient Handouts: Journaling for Mental Health, Coping with PTSD Admission Data Admit Date/Time: 12/29/21 00:50 Attending Provider: Angela Smith Admit Provider: Angela Smith Primary Care Provider: PCP,NO Coding Level of Care Code 05429 D/C day mgmt > 30 min Diagnoses Depression with suicidal ideation F32.A; R45.851 Post traumatic stress disorder (PTSD) F43.10 Time Spent (min) 75
[2021-12-30 13:02] VITALS: BP 112/77; PULSE 106
[2022-01-01 19:51] LABS: 7-Aminoclonaz, Confirm 1590 ng/mL (<25); Hydro-Alp Ur, GC/MS NEGATIVE ng/mL (<25); Hydroxyethylflurazepam, Conf NEGATIVE ng/mL (<50); Hydroxymidazolam Ur, GC/MS NEGATIVE ng/mL (<50); Hydroxytriazolam NEGATIVE ng/mL (<50); Lorazepam, Ur GC/MS NEGATIVE ng/mL (<50); MDA negative; MDEA negative; MDMA (Ecstasy) Urine, Confirm negative; Marijuana Quant, GCMS Urine >5000 ng/mL (<5); Nordiazepam, Confirm NEGATIVE ng/mL (<50); Oxazepam Ur, GC/MS NEGATIVE ng/mL (<50); Temazepam, Confirm NEGATIVE ng/mL (<50)
== END 2021-12-30 14:35 | disposition home or self-care (01) | DRG 883 ==
LOC: ED 21:06 → 3S 12-29 00:50